=== PATIENT | female | born 1950 | race Caucasian/White ===

== ENCOUNTER 2024-01-10 19:11 | Emergency (ER) | payer OTHER ==
[2024-01-10 19:21] VITALS: BP 149/76; PULSE 70; RESP 18; TEMP 98.4; BMI 23.8
== END 2024-01-10 20:28 | disposition home or self-care (01) ==
LOC: FER 19:11
DX: S09.90XA Unspecified injury of head, initial encounter (principal); W01.198A Fall on same level from slipping, tripping and stumbling with subsequent striking against other object, initial encounter
CPT/HCPCS: 99283-25